=== PATIENT | male | born 1995 | race African-American/Black ===

== ENCOUNTER → 2018-08-12 | Emergency (ER) | payer OTHER ==
[~2018-08-12] VITALS: Ht 167.6 cm; Wt 59.1 kg
[2018-08-12 15:04] VITALS: BP 124/79; PULSE 69; TEMP 99
== END ==
LOC: COL.ER 14:43
DX: T16.2XXA Foreign body in left ear, initial encounter (principal); F17.210 Nicotine dependence, cigarettes, uncomplicated; F12.10 Cannabis abuse, uncomplicated